=== PATIENT | male | born 1990 | race Caucasian/White ===

== ENCOUNTER 2020-05-28 20:24 | Emergency (ER) | payer OTHER ==
[~2020-05-28] VITALS: Ht 185.4 cm; Wt 80.7 kg
[~2020-05-28 20:24] MED LIST: AMOX1TAB12 PO; IBUPROFEN800 MG PO; INTESTINEX680 MG PO; ULTRAM50 MG PO
[2020-05-28] MEDS ORDERED: METFORMIN HCL1000 M2 (20:51)
[2020-05-28] MEDS ORDERED: DICLOFENAC SODI75 MG PO (21:12)
[2020-05-28] MEDS ORDERED: NORFLEX100MG PO (21:12)
== END 2020-05-28 21:40 | disposition home or self-care (01) ==
LOC: ER 20:24
DX: S00.33XA Contusion of nose, initial encounter (principal); S80.12XA Contusion of left lower leg, initial encounter; S80.11XA Contusion of right lower leg, initial encounter; M62.830 Muscle spasm of back; V43.92XA Unspecified car occupant injured in collision with other type car in traffic accident, initial encounter; Y93.89 Activity, other specified; Y92.413 State road as the place of occurrence of the external cause; Y99.8 Other external cause status

== ENCOUNTER 2020-07-29 06:21 | Day surgery (SDC) | payer OTHER ==
[~2020-07-29 06:21] MED LIST changes: +DICLOFENAC SODI75 MG PO; +FORTAMET500 MG PO; +METFORMIN HCL1000 M2; +NORFLEX100MG PO
[2020-07-29] MEDS ORDERED: PERCOCET 5-3251 EACH PO (10:37)
[2020-07-29] MEDS ORDERED: NEURONTIN600 M1 PO (10:37)
[2020-07-29] MEDS ORDERED: COLACE100 MG PO (10:38)
== END 2020-07-29 13:45 | disposition home or self-care (01) ==
LOC: CIR.AMB 06:21
PROVIDERS: ATTEND Surgery
DX: K40.20 Bilateral inguinal hernia, without obstruction or gangrene, not specified as recurrent (principal); Z20.828 Contact with and (suspected) exposure to other viral communicable diseases

== ENCOUNTER 2025-07-30 06:00 | Day surgery (SDC) | payer OTHER ==
[2025-07-29 11:17] VITALS: BP 123/86
[2025-07-29 11:23] LABS: BASO % 0.5 % (0.1-1.2); EOS # 0.10 (0.04-0.54); EOS % 2.6 % (0.7-7.0); LYMPH # 1.43 (1.18-3.74); LYMPH % 37.4 % (19.3-53.1); MEAN PLATELET VOLUME 9.10 fl (9.4-12.4); MONO # 0.28 (0.24-0.82); MONO % 7.3 % (4.7-12.5); NEUT # 1.96 (1.56-6.13); NEUT % 51.4 % (34.0-71.1); RED CELL DISTRIBUTION WIDTH 11.9 % (11.6-14.4)
[2025-07-29 11:28] LABS: URINE APPEARANCE Clear; URINE BILIRRUBIN Negative (NEGATIVE); URINE BLOOD Negative; URINE COLOR Yellow; URINE KETONE Negative (NEGATIVE); URINE LEUKOCYTE Negative; URINE NITRATE Negative; URINE PROTEIN Negative (NEGATIVE); URINE UROBILINOGEN 0.2 E.U./dl
[2025-07-29 11:37] LABS: URINE BACTERIA 2.3 uL (0.0-1933); URINE CAST 0.00 uL (0.0-1.40); URINE EPITHELIAL CELLS 0.7 uL (0.0-38.8); URINE GLUCOSE >=1000 MG/DL (NEGATIVE); URINE RBC 0.1 uL (0.0-20.8); URINE WBC 0.9 uL (0.0-23.2)
[2025-07-29 11:40] LABS: INR 1.04
[2025-07-29 12:11] LABS: BUN CREA RATIO 23.0 (7.0-25.0); CREATININE SERUM 0.78 mg/dL (0.70-1.30); GFR 113.27; GLUCOSE FASTING 113.0 mg/dL (65-100); OSMOLALITY SERUM 282.0 MOSM/KG (275-295)
[~2025-07-30] VITALS: Ht 182.9 cm; Wt 80.7 kg
[~2025-07-30 06:00] MED LIST changes: +COLACE100 MG PO; +COZAAR50 MG PO; +JARDIANCE25 MG PO; +LANTUS SOL100 UNIT/1; +NEURONTIN600 M1 PO; +PERCOCET 5-3251 EACH PO
[2025-07-30] MEDS ORDERED: ENOXAPARIN SODIUM 40 MG/0.4 ML SYRINGE SUBCUTANEO ONE ×2 (08:58→09:20)
[2025-07-30] MEDS ORDERED: BUPIVACAINE HCL/MPF 0.5% 30ML VIAL ONE (08:58)
[2025-07-30] MEDS ORDERED: CEFTRIAXONE SODIUM 2,000 MG VIAL ONE (09:11)
[2025-07-30] MEDS ORDERED: METRONIDAZOLE/SODIUM CHLORIDE 500 MG/100 ML PIGGYBACK IV ONE (09:11)
[2025-07-30] MEDS ORDERED: MORPHINE SULFATE 4 MG/ML VIAL IV ONE (13:00)
[2025-07-30] MEDS ORDERED: POLY119PG PO (13:19)
[2025-07-30] MEDS ORDERED: CELEBREX200MG PO (13:19)
[2025-07-30] MEDS ORDERED: NEURONTIN300 MG PO (13:19)
[2025-07-30] MEDS ORDERED: PERCOCET 5-3251 EACH PO (13:19)
== END 2025-07-30 14:25 | disposition home or self-care (01) ==
LOC: CIR.AMB 06:00
PROVIDERS: ATTEND Surgery
DX: K40.91 Unilateral inguinal hernia, without obstruction or gangrene, recurrent (principal); Z53.31 Laparoscopic surgical procedure converted to open procedure
CPT/HCPCS: 49521; C1781